=== PATIENT | male | born 1990 | race Caucasian/White ===

== ENCOUNTER 2020-08-19 23:12 | Emergency (ER) | payer BC ==
[2020-08-19] MEDS ORDERED: DIPH,PERTUS(ACELL)TETVAC-LF 0.5 ML VIAL IM ONE (23:40)
[2020-08-19] MEDS ORDERED: LIDOCAINE 1% INJ 10MG/ML (20 ML MDV) SQ ONE (23:40)
--- NOTE | 2020-08-19 23:51 | XR ---
EXAMINATION TYPE: XR finger LT DATE OF EXAM: 08/19/2020 COMPARISON: NONE HISTORY: Laceration middle finger TECHNIQUE: 3 views FINDINGS: I see no fracture nor dislocation. Joint spaces are normal. There are no pathologic calcifi cations. IMPRESSION: Negative left little finger exam.
--- NOTE | 2020-08-20 00:15 | ED ---
General Adult HPI - General Chief complaint: Wound/Laceration Stated complaint: Finger Laceration Time Seen by Provider: 08/19/20 23:25 Source: patient Mode of arrival: ambulatory - History of Present Illness Initial comments: 29yo male prsenting for cc of left 5th digit laceration. Patient states that he was cut by a toy airplane. he states it cut him over the knuckle of the fifth digit. He denies loss of sensation, decreased range of motion or strength of digit. Patient unsure of last tdap. pt denies additional areas of injury denies suspected foreign body. Patient appears well nontoxic in no acute distress. - Related Data Previous Rx's Medication Instructions Recorded Cephalexin [Keflex] 500 mg PO Q8HR 5 Days #15 cap 08/20/20 Allergies Allergy/AdvReac Type Severity Reaction Status Date / Time No Known Allergies Allergy Verified 08/19/20 23:20 Review of Systems ROS Statement: Those systems with pertinent positive or pertinent negative responses have been documented in the HPI. ROS Other: All systems not noted in ROS Statement are negative. Past Medical History Past Medical History: No Reported History History of Any Multi-Drug Resistant Organisms: None Reported Past Surgical History: No Surgical Hx Reported Past Psychological History: No Psychological Hx Reported Smoking Status: Current every day smoker Past Alcohol Use History: None Reported Past Drug Use History: None Reported General Exam - General Exam Comments Initial Comments: General: The patient is awake and alert, in no distress, and does not appear acutely ill. Eye: Pupils are equal, round and reactive to light, extra-ocular movements are intact. No nystagmus. There is normal conjunctiva bilaterally. No signs of icterus. Musculoskeletal: Irregular laceration of the left 5th digit dorsal aspect of PIP joint. Full ROM at MCP, DIP and PIP when isolated, no decreased in strength as it is 5/5. sensation and capillary refill intact proximal and distal to injury stie. Cap refill <3 seconds. Radial pulses equal bilaterally 2+. Neurological: A&O x 3. CN II-XII intact grossly, There are no obvious motor or sensory deficits. Coordination appears grossly intact. Speech is normal. Skin: Skin is warm and dry and no rashes. Irregular numerous laceations 3-4 on the dorsal aspect of the 5th left digit dorsum over PIP joint. no tendon or bone exposure. Psychiatric: Cooperative, appropriate mood & affect, normal judgment. Course Vital Signs 03/20/21 03/21/21 23:18 01:04 Temperature 98 F 97.8 F Pulse Rate 105 H 103 H Respiratory 18 14 Rate Blood Pressure 142/86 119/97 O2 Sat by Pulse 99 100 Oximetry Procedures - Laceration Laceration #1 Consent Obtained: verbal consent Indication: laceration Site: other (5th left finger) Size (cm): 2 Description: flap, irregular, clean Anesthetic Used: lidocaine 1% Anesthesia Technique: local infiltration Amount (mls): 1 Pre-repair: wound explored, irrigated extensively, deep structures intact Type of Sutures: nylon Size of Sutures: 5-0 Number of Sutures: 8 Technique: simple, interrupted Patient Tolerated Procedure: well, no complications Additional Comments: as laceration very irregular- it was repaired to the best of my ability using 8, 5.0 nylon sutures. Medical Decision Making - Medical Decision Making No clinical findings suggestive of tendon injury. discussed risk of occult tendon injury (partial tears) and importance of f/u, return parameters. after irrigation, wound closed, approximately as well as felt possible. Patient bandaged. placed on abx and is to f/u with pcp. patient tdap updated. and he was discharged appearing well. Disposition Clinical Impression: Finger laceration Disposition: HOME SELF-CARE Condition: Good Instructions (If sedation given, give patient instructions): Finger Laceration (ED) Additional Instructions: Please use medication as discussed. Please follow-up with family doctor in the next 2 days. He decreased range of motion please follow-up with orthopedic surgery within 2-3 days, return for suture removal in 7-10 days. Please return to emergency room if the symptoms increase or worsen or for any other concerns. Prescriptions: Cephalexin [Keflex] 500 mg PO Q8HR 5 Days #15 cap Is patient prescribed a controlled substance at d/c from ED?: No Referrals: Ronak Granado MD [Primary Care Provider] - 1-2 days Time of Disposition: 00:41
[2020-08-20 01:04] VITALS: BP 119/97; PULSE 103; RESP 14; TEMP 97.8
== END 2020-08-20 01:00 | disposition home or self-care (01) ==
LOC: EC 23:12
DX: S61.217A Laceration without foreign body of left little finger without damage to nail, initial encounter (principal); F17.200 Nicotine dependence, unspecified, uncomplicated; W26.8XXA Contact with other sharp object(s), not elsewhere classified, initial encounter; Z23 Encounter for immunization
CPT/HCPCS: 73140; 90715; 99282; 12041; 90471; J2001